=== PATIENT | female | born 1975 | race Two or more races ===

== ENCOUNTER 2023-11-29 15:40 | Outpatient (REF) | payer BC, SELFPAY ==
[2023-11-29 21:40] LABS: HCT 41.4 % (36.0-46.0); HGB 14.1 g/dL (11.2-15.7); MCH 30.4 pg (27.0-33.0); MCHC 34.1 % (32.0-36.0); MCV 89 fL (80-95); MPV 11.3 fL (8.0-11.0); Platelet Count 260 10^3/uL (130-400); RBC 4.64 10^6/uL (3.93-5.22); RDW 13.2 % (11.7-14.6); WBC 7.94 10^3/uL (4.4-10.8)
[2023-11-29 21:49] LABS: ALT 79 U/L (14-59); AST 42 U/L (15-37); Albumin 4.1 g/dL (3.4-5.0); Alkaline Phosphatase 51 U/L (46-116); Anion Gap 10.1 mmol/L (3-11); BUN 14 mg/dL (7-18); Bilirubin, Total 0.4 mg/dL (0.2-1.0); CO2 27.9 mmol/L (21.0-32.0); CREATININE 0.8 mg/dL (0.55-1.02); Calcium 9.1 mg/dL (8.5-10.1); Calculated LDL 131 mg/dL (<100); Chloride 104 mmol/L (98-107); Cholesterol 232 mg/dL (<200); Estimated GFR 90.27 (mL/min/1.73m2); Glucose 107 mg/dL (74-106); HDL Cholesterol 47 mg/dL (40-60); Potassium 4.1 mmol/L (3.5-5.1); Sodium 142 mmol/L (136-145); Total Protein 7.6 g/dL (6.4-8.2); Triglyceride 270 mg/dL (<150)
[2023-11-30 13:57] LABS: Lab Add On Test DONE
[2023-11-30 15:25] LABS: Hemoglobin A1C 6.2 % (<5.7)
[2023-11-30 15:27] LABS: TSH 1.79 uIU/Ml (0.36-3.74)
== END 2023-11-29 15:41 | disposition home or self-care (01) ==
LOC: LBN 15:40
PROVIDERS: Visit Provider Nurse Practitioner Family
DX: G56.01 Carpal tunnel syndrome, right upper limb (principal); I10 Essential (primary) hypertension
CPT/HCPCS: 80053; 80061; 85027; 83036; 84443

== ENCOUNTER 2025-05-28 08:28 | Emergency (ER) | payer SELFPAY ==
[2025-05-28] VITALS (17 sets, daily range): BP systolic 157–247; BP diastolic 88–137; PULSE 67–85; RESP 12–28; TEMP 36.5; O2SAT 96–99
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
[2025-05-28] MEDS: fentaNYL 100 MCG/2 ML VIAL 50 MCG IVP ×2 (08:58→10:12)
[2025-05-28 09:03] LABS: Abs Immature Grans 0.05 10^3/uL (0.0-0.06); HCT 42.8 % (36.0-46.0); HGB 14.2 g/dL (11.2-15.7); Immature Grans % 0.5 %; MCH 29.5 pg (27.0-33.0); MCHC 33.2 % (32.0-36.0); MCV 89 fL (80-95); MPV 10.9 fL (8.0-11.0); Platelet Count 237 10^3/uL (130-400); RBC 4.81 10^6/uL (3.93-5.22); RDW 13.0 % (11.7-14.6); RDW-SD 42.7 fL; WBC 9.95 10^3/uL (4.4-10.8)
[2025-05-28] MEDS: ACETAMINOPHEN 1,000 MG/100 ML BAG 400 MG IVPB (09:04)
[2025-05-28 09:17] LABS: INR 1.0 (0.9-1.1); PTT Activated 22.1 sec (20.6-30.2); Prothrombin Time 9.7 sec (9.1-11.1)
[2025-05-28] MEDS: Normal Saline Flush 10 ML SYR IVP (09:18)
[2025-05-28] MEDS: Normal Saline - Diluent 50 ML VIAL IJ (09:18)
[2025-05-28] MEDS: Omnipaque 350 MG/ML 100 ML BTL IJ (09:18)
[2025-05-28 09:23] LABS: ALT 46 U/L (10-49); AST 35 U/L (<34); Albumin 4.4 g/dL (3.4-5.0); Alkaline Phosphatase 61 U/L (46-116); Anion Gap 7.3 mmol/L (3-11); BUN 17 mg/dL (9-23); Bilirubin, Total 0.40 mg/dL (0.2-1.2); CO2 28.7 mmol/L (20.0-31.0); Calcium 9.2 mg/dL (8.3-10.6); Chloride 105 mmol/L (98-107); Glucose 138 mg/dL (74-106); Potassium 4.8 mmol/L (3.5-5.1); Sodium 141 mmol/L (136-145); Total Protein 7.7 g/dL (5.7-8.2)
[2025-05-28] MEDS: Lactated Ringers 1,000 ML 1000 ML IV (09:30)
[2025-05-28 09:38] LABS: Troponin I < 3 ng/L (<35)
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
[2025-05-28] MEDS: Ketorolac 15 MG/ML VIAL IVP (11:10)
[2025-05-28] MEDS: Lidocaine 5% Patch 1 PATCH TP (11:11)
== END 2025-05-28 12:41 | disposition home or self-care (01) ==
PROVIDERS: Emergency Provider Physician Assistant
DX: S06.0XAA Concussion with loss of consciousness status unknown, initial encounter (principal); S00.93XA Contusion of unspecified part of head, initial encounter; V49.9XXA Car occupant (driver) (passenger) injured in unspecified traffic accident, initial encounter; M62.838 Other muscle spasm; M25.512 Pain in left shoulder
CPT/HCPCS: 99284; 99285; 96374; 96375; 96376; 74177; 80053; 86850; 86900; 86901; 96361; 70450; 71260; 72125; 73030; 73502; 84484; 85025; 85610; 85730; J0131; J1885; J3010; J3490